=== PATIENT | male | born 1955 | race Asian ===

== ENCOUNTER 2020-02-05 14:51 | Emergency (ER) | payer OTHER ==
[~2020-02-05] VITALS: Ht 170.2 cm; Wt 68.2 kg
[2020-02-05] MEDS ORDERED: POVIDONE-IODINE 10% 15 ML SOLUTION UD TP ONE (15:30)
[2020-02-05] MEDS ORDERED: LIDOCAINE/PF 1% 5 ML VIAL INJ ONE (15:30)
[2020-02-05] MEDS ORDERED: BACITRACIN 0.9 GM PACKET OINTMENT TP ONE (15:30)
[2020-02-05 16:36] VITALS: BP 142/81
== END 2020-02-05 16:37 | disposition home or self-care (01) ==
LOC: EMS 14:58
DX: S61.512A Laceration without foreign body of left wrist, initial encounter (principal); W45.8XXA Other foreign body or object entering through skin, initial encounter; Y93.89 Activity, other specified; Y92.89 Other specified places as the place of occurrence of the external cause; Y99.0 Civilian activity done for income or pay
CPT/HCPCS: 12002; 99282; J2001

== ENCOUNTER 2020-02-13 14:45 | Emergency (ER) | payer OTHER ==
[~2020-02-13] VITALS: Ht 175.3 cm; Wt 63.6 kg
[2020-02-13 14:48] VITALS: BP 131/62
== END 2020-02-13 15:32 | disposition home or self-care (01) ==
LOC: EMS 14:49
DX: S61.412D Laceration without foreign body of left hand, subsequent encounter (principal); S61.512D Laceration without foreign body of left wrist, subsequent encounter; X58.XXXD Exposure to other specified factors, subsequent encounter
CPT/HCPCS: Z7502

== ENCOUNTER 2021-05-09 05:56 | Day surgery (SDC) | payer OTHER ==
[~2021-05-09] VITALS: Ht 175.3 cm; Wt 64.5 kg
[2021-05-09] MEDS ORDERED: SODIUM CHLORIDE 0.9% 1,000 ML IV ONE (06:30)
[2021-05-09] MEDS ORDERED: FentaNYL CITRATE PF 100 MCG/2 ML VIAL ONE (06:50)
[2021-05-09] MEDS ORDERED: MIDAZOLAM HCL 5 MG/ML VIAL ONE (06:50)
[2021-05-09 06:54] LABS: COVID AG,FIA SOURCE NASOPHARYNGEAL
[2021-05-09] MEDS ORDERED: MethylPREDNISolone SOD SUCC 125 MG/2 ML VIAL IVP ONE (09:00)
[2021-05-09] MEDS ORDERED: MethylPREDNISolone SOD SUCC 125 MG/2 ML VIAL ONE (09:18)
[2021-05-09] MEDS ORDERED: BENZOCAINE 20% 50 MCG/SPRAY 57 GM ONE (14:40)
[2021-05-09] MEDS ORDERED: LIDOCAINE 2% 30 ML JELLY ONE (14:40)
[2021-05-09] MEDS ORDERED: ALBUTEROL SULFATE 2.5 MG/0.5 ML NEB SOLUTION NEB ONE (14:40)
[2021-05-09] MEDS ORDERED: OXYGEN THERAPY IH SCH (20:00)
[2021-05-10] MEDS ORDERED: SODIUM CHLORIDE 0.9% 1,000 ML IV ONE (06:30)
== END 2021-05-09 11:00 | disposition home or self-care (01) ==
LOC: SURGERY 05:56
PROVIDERS: ATTEND Internal Medicine Critical Care Medicine
DX: J38.4 Edema of larynx (principal); B37.0 Candidal stomatitis
CPT/HCPCS: 31623; 31624; 71045; 87015; 87070; 87101; 87206; 87220; 87426; C9803; J2250; J2930; J3010; 87205; 88108; 88184; 88185; 88312; J7613